=== PATIENT | female | born 1940 | race Caucasian/White ===

== ENCOUNTER → 2016-07-02 | Outpatient (CLI) | payer OTHER | LOC: FIMAGING 09:42 | PROVIDERS: ATTEND Specialist | DX: Z13.820 Encounter for screening for osteoporosis (principal); M85.80 Other specified disorders of bone density and structure, unspecified site; Z78.0 Asymptomatic menopausal state ==

== ENCOUNTER → 2016-07-14 | Outpatient (CLI) | payer OTHER | LOC: FIMAGING 11:15 | DX: Z12.31 Encounter for screening mammogram for malignant neoplasm of breast (principal) | CPT/HCPCS: G0202 ==

== ENCOUNTER 2016-12-15 02:37 | Emergency (ER) | payer OTHER ==
--- NOTE | 2016-12-15 03:09 | EDPHY ---
H & P Stated Complaint: hematuria, dizziness starting tonight Time Seen by Provider: 12/15/16 03:05 HPI/ROS: Chief Complaint: Hematuria, burning with urination HPI: 76-year-old woman woke this morning and went to the bathroom and had hematuria. Patient did also have some pain with urination. Has some clots as well. Does have a history of urinary trouble in the past. Denies any fevers or chills. No nausea or vomiting. ROS: 10 point Review of Systems is negative except as noted in the HPI. PMH: Hypertension Social History: No smoking, occasional alcohol, no recreational drug use Family History: non-contributory Physical Exam: Gen: Awake, Alert, No Distress HEENT: Nose: no rhinorrhea Eyes: PERRLA, EOMI Mouth: Moist mucosa Neck: Supple, no JVD Chest: nontender, lungs clear to auscultation Heart: S1, S2 normal, no murmur Abd: Soft, non-tender, no guarding Pelvic exam: Speculum exam performed by me with Claudia as nurse packaging machine operator. There is no blood in the vaginal vault. Back: no CVA tenderness, no midline tenderness Ext: no edema, non-tender Skin: no rash Neuro: CN II-XII intact, Sensation grossly intact, Strength 5/5 in bilateral upper and lower extremities - Personal History Current Tetanus Diphtheria and Acellular Pertussis (TDAP): No - Medical/Surgical History Hx Asthma: No Hx Chronic Respiratory Disease: No Hx Diabetes: No Hx Cardiac Disease: Yes Hx Renal Disease: No Hx Cirrhosis: No Hx Alcoholism: No Hx HIV/AIDS: No Hx Splenectomy or Spleen Trauma: No Other PMH: HTN, CVA, high cholestrol, hysterectomy, kristyn in femur, left ventricle cardiac "issue" - Social History Smoking Status: Former smoker Constitutional: Initial Vital Signs Temperature (C) 36.4 C 12/15/16 02:42 Heart Rate 79 12/15/16 02:42 Respiratory Rate 18 12/15/16 02:42 Blood Pressure 143/90 H 12/15/16 02:42 O2 Sat (%) 97 12/15/16 02:42 O2 Delivery Mode Room Air Allergies/Adverse Reactions: codeine [Codeine] Allergy (Intermediate, Verified 05/09/14 13:22) NIGHTMARES epinephrine [Epinephrine] Allergy (Intermediate, Verified 05/09/14 13:22) VERY HIGH BP pneumococcal 23-valent polysacchari [From Pneumovax 23] Allergy (Mild, Verified 05/09/14 13:22) RED LINE AROUND AROUND ARM metronidazole [From Flagyl] Allergy (Unknown, Verified 05/08/09 15:39) Unknown BLACK MOLD Allergy (Intermediate, Uncoded 05/09/14 13:22) HARD TO BREATHE Home Medications: Medication Instructions Recorded Atorvastatin Calcium [Lipitor 20 20 mg PO HS 08/10/13 mg (*)] amLODIPine BESYLATE [Norvasc 5 mg 5 mg PO DAILY 08/10/13 (*)] Aspirin [Aspirin 325 mg (*)] 325 mg PO DAILY #30 tab 08/11/13 Lisinopril 12/15/16 Medical Decision Making ED Course/Re-evaluation: 76-year-old woman presenting with hematuria without nitrites or leuk esterase. Symptoms not consistent with urinary tract infection. She will need follow-up with Urology for for further evaluation of her hematuria. - Data Points Laboratory Results: 12/15/16 02:50 Urine Color RED Urine Appearance TURBID Urine pH 7.0 (5.0-7.5) Ur Specific [place] 1.025 (1.002-1.030) Urine Protein 2+ H (NEGATIVE) Urine Ketones 1+ H (NEGATIVE) Urine Blood 3+ H (NEGATIVE) Urine Nitrate NEGATIVE (NEGATIVE) Urine Bilirubin NEGATIVE (NEGATIVE) Urine Urobilinogen NEGATIVE EU EU (0.2-1.0) Ur Leukocyte Esterase NEGATIVE (NEGATIVE) Urine RBC 50-182 /hpf H /hpf (0-3) Urine WBC 25-50 /hpf H /hpf (0-3) Ur Epithelial Cells NONE SEEN /lpf /lpf (NONE-1+) Urine Glucose 1+ H (NEGATIVE) Departure - Departure Disposition: Home, Routine, Self-Care Clinical Impression: Hematuria Condition: Good Instructions: Hematuria (ED) Additional Instructions: Follow up with Dr. Doe, urologist, in 2-3 days for re-evaluation. Call his office later this morning for next available appointment. Return to the emergency department for increasing pain, lightheadedness, fainting, fevers, chills, or any other concerns. Referrals: Christofer Doe MD [Medical Doctor] - As per Instructions
[2016-12-15 03:20] LABS: COLOR RED; LEUKOCYTE ESTERASE,URINE NEGATIVE (NEGATIVE); NITRITE,URINE NEGATIVE (NEGATIVE)
[2016-12-15 03:41] LABS: RBC,URINE 50-182 /hpf (0-3); WBC,URINE 25-50 /hpf (0-3)
[2016-12-15 04:12] VITALS: BP 141/75; PULSE 83; RESP 20; TEMP 98.1; O2SAT 95
== END 2016-12-15 04:12 | disposition home or self-care (01) ==
DX: R31.9 Hematuria, unspecified (principal); I10 Essential (primary) hypertension; Z79.82 Long term (current) use of aspirin; Z86.73 Personal history of transient ischemic attack (TIA), and cerebral infarction without residual deficits; Z87.891 Personal history of nicotine dependence

== ENCOUNTER → 2016-12-23 | Outpatient (CLI) | payer OTHER ==
[~2016-12-23] MED LIST: IOPAMIDOL (ISOVUE-300) 100 ML BTL ONE
== END ==
LOC: FIMAGING 15:42
PROVIDERS: ATTEND Physician Assistant
DX: R31.0 Gross hematuria (principal)
CPT/HCPCS: 74178; Q9967

== ENCOUNTER → 2017-08-02 | Outpatient (CLI) | payer OTHER | LOC: FIMAGING 11:29 | DX: Z13.820 Encounter for screening for osteoporosis (principal); M85.89 Other specified disorders of bone density and structure, multiple sites ==

== ENCOUNTER → 2018-01-08 | Outpatient (CLI) | payer OTHER | LOC: FIMAGING 10:12 | DX: S22.060A Wedge compression fracture of T7-T8 vertebra, initial encounter for closed fracture (principal); M51.34 Other intervertebral disc degeneration, thoracic region; M46.94 Unspecified inflammatory spondylopathy, thoracic region; M48.04 Spinal stenosis, thoracic region ==

== ENCOUNTER 2018-01-18 08:28 | Day surgery (SDC) | payer OTHER ==
--- NOTE | 2018-01-18 08:41 | PDANEPAE ---
ANE History of Present Illness multilevel kyphoplasty ANE Past Medical History - Cardiovascular History Hx Hypertension: Yes Hx Arrhythmias: No Hx Chest Pain: No Hx Coronary Artery / Peripheral Vascular Disease: No Hx CHF / Valvular Disease: No Hx Palpitations: No - Pulmonary History Hx COPD: No Hx Asthma/Reactive Airway Disease: No Hx Recent Upper Respiratory Infection: No Hx Oxygen in Use at Home: No Hx Sleep Apnea: No Sleep Apnea Screening Result - Last Documented: Negative - Neurologic History Hx Cerebrovascular Accident: Yes Hx Seizures: No Hx Dementia: No Neurologic History Comment: CVA 5 YRS AGO - NO RESIDUAL - Endocrine History Hx Diabetes: No - Renal History Hx Renal Disorders: Yes Renal History Comment: BLADDER SURG - Liver History Hx Hepatic Disorders: No Hepatic History Comment: HEPATITIS A YRS AGO - Neurological & Psychiatric Hx Hx Neurological and Psychiatric Disorders: No - Cancer History Hx Cancer: No 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 HYSTERECTOMY. R HIP FX REPAIR 1 1/2 YRS AGO. TONSILLECTOMY ANE Review of Systems Review of systems is: negative Review of Systems: - Exercise capacity METS (RN): 4 METS ANE Patient History - Allergies Allergies/Adverse Reactions: codeine [Codeine] Allergy (Intermediate, Verified 05/09/14 13:22) NIGHTMARES epinephrine [Epinephrine] Allergy (Intermediate, Verified 05/09/14 13:22) VERY HIGH BP oxycodone [From Percocet] Allergy (Mild, Verified 01/18/18 10:40) Other-Enter Comments Tetanus Vaccines and Toxoid Allergy (Mild, Verified 01/18/18 10:40) Other-Enter Comments metronidazole [From Flagyl] Allergy (Unknown, Verified 05/08/09 15:39) Unknown BLACK MOLD Allergy (Intermediate, Uncoded 05/09/14 13:22) HARD TO BREATHE - Home Medications Home medications: home medication list seen and reviewed Home Medications: Atorvastatin Calcium [Lipitor 20 mg (*)] 20 mg PO HS 08/10/13 [Last Taken 2 Months Ago ~11/18/17] amLODIPine BESYLATE [Norvasc 5 mg (*)] 5 mg PO DAILY 08/10/13 [Last Taken ] Lisinopril 12/15/16 [Last Taken 01/17/18] Miralax 17 gm (*) 01/17/18 [Last Taken 2 Days Ago ~01/16/18] Tramadol HCl 01/17/18 [Last Taken 01/17/18] Herbals/Supplements -Info Only 01/18/18 [Last Taken 3 Days Ago ~01/15/18] - NPO status NPO Status: no food or drink >8 hours - Anes Hx Anes Hx: no prior problems - Smoking Hx Smoking Status: Former smoker - Family Anes Hx Family Anes Hx: none Family Hx Anesthesia Complications: NEG ANE Labs/Vital Signs - Labs Result Diagrams: 01/18/18 09:38 - Vital Signs Vital Signs: reviewed preoperatively; see RN documention for details Height: 160.02 cm Weight: 61.235 kg ANE Physical Exam - Airway Neck exam: FROM Mallampati Score: Class 1 Mouth exam: normal dental/mouth exam - Pulmonary Pulmonary: no respiratory distress - Cardiovascular Cardiovascular: regular rate and rhythym - ASA Status ASA Status: III ANE Anesthesia Plan Anesthesia Plan: general endotracheal anesthesia
[2018-01-18] MEDS ORDERED: LR 1,000 ML IV ONE (08:43)
[2018-01-18] MEDS ORDERED: LIDOCAINE 1% 2 ML INJ ID PRN (08:43)
[2018-01-18 09:43] LABS: PLATELET COUNT 286 10^3/uL (150-400)
[2018-01-18] MEDS ORDERED: BUPIVACAINE 0.5% 30 ML SDV ONE ×3 (09:54→11:18)
[2018-01-18] MEDS ORDERED: IOPAMIDOL (ISOVUE-M 300) 15 ML VIAL ONE ×4 (09:55→14:08)
[2018-01-18] MEDS ORDERED: ACETAMINOPHEN 500 MG TAB PO ONE (10:37)
[2018-01-18] MEDS ORDERED: ceFAZolin 2 GM/DEXTROSE 100 ML IV ONE (10:37)
--- NOTE | 2018-01-18 10:39 | PDHPUP ---
History & Physical Update H&P update statement: This history and physical update is based on an assessment of the patient which was completed after admission or registration (within 24 hours), but prior to the surgery/procedure. H&P update: H&P reviewed & patient examined, no change in patient's condition since H&P completed
[2018-01-18] MEDS ORDERED: MIDAZOLAM 2 MG/2 ML VIAL ONE (10:57)
[2018-01-18] MEDS ORDERED: PROPOFOL 200 MG/20 ML VIAL ONE ×2 (11:10→11:33)
[2018-01-18] MEDS ORDERED: DEXAMETHASONE 4 MG/ML VIAL ONE (11:10)
[2018-01-18] MEDS ORDERED: ONDANSETRON 4 MG/2 ML VIAL ONE (11:10)
[2018-01-18] MEDS ORDERED: LIDOCAINE 2% 100 MG/5 ML SYR ONE (11:10)
[2018-01-18] MEDS ORDERED: fentaNYL 250 MCG/5 ML INJ ONE (11:10)
[2018-01-18] MEDS ORDERED: ROCURONIUM 50 MG/5 ML VIAL ONE (11:10)
[2018-01-18] MEDS ORDERED: MIDAZOLAM 2 MG/2 ML VIAL IVP ONE (11:24)
[2018-01-18] MEDS ORDERED: PHENYLEPHRINE HCL 100 MCG/ML SYR ONE (12:26)
[2018-01-18] MEDS ORDERED: HYDROCODONE/APAP 5/325 TAB PO PRN (13:23)
[2018-01-18] MEDS ORDERED: ONDANSETRON 4 MG/2 ML VIAL IVP PRN (13:23)
[2018-01-18] MEDS ORDERED: MEPERIDINE 25 MG/0.5 ML AMP IVP PRN (13:23)
[2018-01-18] MEDS ORDERED: fentaNYL 100 MCG/2 ML INJ IVP PRN (13:23)
[2018-01-18] MEDS ORDERED: LABETALOL HCL 5 MG/ML 20 ML MDV IVP PRN (13:23)
[2018-01-18] MEDS ORDERED: PROMETHAZINE HCL 25 MG/ML INJ IVP PRN (13:23)
[2018-01-18] MEDS ORDERED: DEXAMETHASONE 4 MG/ML VIAL IVP PRN (13:23)
[2018-01-18] MEDS ORDERED: NALOXONE HCL 0.4 MG/ML INJ IVP PRN (13:23)
[2018-01-18] MEDS ORDERED: HYDROmorphONE/DILAUDID 2 MG/ML INJ IVP PRN (13:23)
--- NOTE | 2018-01-18 13:24 | POSTANESTH ---
Post Anesthetic Evaluation Cardiovascular Status: Normal, Stable, Similar to Pre-Op Cond Respiratory Status: Normal, Stable, Similar to Pre-op Cond. Level of Consciousness/Mental Status: Can Participate in Eval, Mildly Sleepy, Arousable Pain Control: Adequate, Prn Tx Ordered Nausea/Vomiting Control: Adequate, Prn Tx Ordered Complications Possibly Related to Anesthesia: None Noted
--- NOTE | 2018-01-18 13:57 | SUROPNOTE ---
[facility] Operative Report - Surgery Date: 01/18/18 Pre-operative Diagnosis: Multiple Vertebral Compression Fractures Post-operative Diagnosis: Same Procedures: T8, T12, L1, L2, L3 Kyphoplasty Vertebral body biopsies Surgeon: Robb Naylor MD Assist: Bry Edward Anesthesia: General endotracheal anesthesia Findings: As expected Estimated Blood Loss: 1mL Drains: None Specimens: Vertebral bone biopsies Complications: None Condition: Transferred to PACU in stable condition Implants: [employer] Kyphon kyphoplasty system, bilateral Indications: The patient sustained a compression fracture, diagnosed by radiographic imaging. I have explained all options of treatment for the patient, and the patient has elected to proceed with operative management after having failed all conservative options. I have explained all risks, benefits, and alternatives of the proposed procedure. The risks that we have discussed include , paralysis blindness, extravasation of cement, nerve damage, infection, dural tear, failure of surgery to alleviate pre-operative symptoms, and possible need for further operation. In addition to the aforementioned procedure, I also discussed with the patient that other procedures may be indicated during the course of surgery that would be considered in the patient s best interest. The patient has expressed understanding of this. Pre-operative: The proposed incision site was marked in the pre-operative holding area by me. The patient was then taken to the operating room in stable condition. Following smooth induction of general anesthesia, the patient was positioned prone on a Quintin table in mild reverse Trendelenburg with all down surfaces well-padded. The patient was then prepped and draped in the usual sterile fashion. Pre- operative antibiotics were administered within one hour of the incision. A surgical timeout was performed, and all parties involved in the procedure were in agreement on the correct patient, location, and procedure to be performed. Spinal pause: At each operative level, aA needle was used with AP and lateral fluoroscopy to identify the operative level. The appearance of the vertebra on lateral xray was apparent due to the degree of compression. The operative level was also identified by counting up from the sacrum. A secondary spinal pause was then performed, and the level was confirmed with all parties participating in the operation. The skin was marked for the proposed incision. Surgical approach: The skin was then incised sharply through the dermis. The trocar was then introduced into the pedicle based on fluoroscopy. At this time the trocar was then passed into the pedicle past the level of the posterior endplate of the vertebral body. This was subsequently removed and the docking trocar was left in place. A hand drill was then used to create a channel to the anterior vertebral endplate. The drill was then subsequently removed. A smooth trocar was then introduced to remove any bony debris or trabeculae that might compromise the balloon. Of note, the body at T7 was noted to be exceptionally difficult to cannulate. Based on the degree of difficulty here, the decision not to perform a kyphoplasty was made. In this fashion, kyphoplasties were performed at T8, T12, L1, L2, and L3. Vertebral body biopsy: A hollow core biopsy device was then tamped into the vertebral body. The needle was then drawn back, and a core biopsy of good quality was obtained. This was sent for pathology. This was attempted at multiple levels; please see operative pathology report for additional details. Cementation: A [employer] Kyphon balloon was then introduced into the channel that was created from the trocar. In similar fashion, the contralateral balloon was introduced as well. The balloons were then inflated in alternating fashion and this was monitored by fluoroscopy to ensure proper endplate height moravian. They were inflated up on each side, and the amount of contrast was recorded.~ Final radiographs confirmed proper vertebral height moravian. The balloons were then removed. Cement was then injected into the vertebral body through the cavity created by the balloon. Fluoroscopic confirmation was performed done every 0.5 mL to confirm that none of the cement had extravasated posteriorly or passed any of the endplates. Once the cement was allowed to harden, this was confirmed by probing them directly. All incisions were then removed and final x- rays were taken and there was no pathologic placement of cement. Restorationism of vertebral height was maintained throughout the case. Closure: Sterile glue was then applied to the trocar sites. A sterile island dressing was applied over the surgical incision. A surgical count was performed before initiation of closure and following the procedure, and all were correct. I was present for the entire procedure. Assist: A instructor adjunct surgical technician was deemed necessary for safe operation during the procedure. Recovery: The patient was extubated uneventfully in the operating room. The patient was taken to the recovery room in stable condition. Sequential compression devices for VTE prophylaxis were applied to the patients lower extremities, and were ordered to be used while the patient was non-ambulatory. Chemical VTE prophylaxis was considered to be contraindicated for this patient because of the risk of bleeding near the epidural space. Armando Naylor MD
--- NOTE | 2018-01-18 16:26 | PDHOMEO2F ---
Home Oxygen Face to Face Home Orders: I certify that a physician or a nurse practitioner or physician's sound assistant has had a [id number] encounter with this patient on the date of this order due to the diagnosis listed, which relates to the primary reason the patient requires home oxygen. Alternative treatments have been tried, or considered, and deemed ineffective. It is anticipated that supplemental oxygen will result in improvement with treatment. Home oxygen qualifying diagnosis: hypoxia SpO2 on room air (%): 83 Frequency of home oxygen needed: continuous Home oxygen liters per minute: 2 Home oxygen delivery device: nasal cannula Concentrator: Yes E-tanks for mobility and back up: Yes If ordering portable O2, is the patient mobile in the home?: Yes I certify that, based on these findings, the home oxygen is medically necessary for this patient for the following length of time. Length of time home oxygen needed: 1 week
[2018-01-18] MEDS ORDERED: HYDROCODONE/APAP 5/325 TAB ONE (16:43)
[2018-01-18 17:07] VITALS: BP 124/79
== END 2018-01-18 18:12 | disposition home or self-care (01) ==
LOC: FSGY 08:28
PROVIDERS: ATTEND Orthopaedic Surgery Orthopaedic Surgery of the Spine
PROC: BR171ZZ Fluoroscopy of Thoracic Spine using Low Osmolar Contrast (ICD-10-PCS; principal; 2018-01-18 10:00)
PROC: 0QU03JZ Supplement Lumbar Vertebra with Synthetic Substitute, Percutaneous Approach (ICD-10-PCS; principal; 2018-01-18 10:00)
PROC: 0RB Upper Joints, Excision (ICD-10-PCS; principal; 2018-01-18 10:00)
PROC: 0PS43ZZ Reposition Thoracic Vertebra, Percutaneous Approach (ICD-10-PCS; principal; 2018-01-18 10:00)
PROC: BR191ZZ Fluoroscopy of Lumbar Spine using Low Osmolar Contrast (ICD-10-PCS; principal; 2018-01-18 10:00)
DX: M80.08XA Age-related osteoporosis with current pathological fracture, vertebra(e), initial encounter for fracture (principal); I10 Essential (primary) hypertension; E78.00 Pure hypercholesterolemia, unspecified; Z86.73 Personal history of transient ischemic attack (TIA), and cerebral infarction without residual deficits
CPT/HCPCS: C1713; J0690; J1100; J2001; J2250; J2370; J2405; J2704; J3010; Q9967

== ENCOUNTER → 2018-07-06 | Outpatient (CLI) | payer OTHER | LOC: FIMAGING 14:49 | PROVIDERS: ATTEND Internal Medicine | DX: Z12.31 Encounter for screening mammogram for malignant neoplasm of breast (principal) ==